=== PATIENT | female | born 1990 | race African-American/Black ===

== ENCOUNTER 2016-09-07 14:02 | Inpatient (IN) | payer OTHER ==
[~2016-09-07] VITALS: Ht 175.3 cm; Wt 86.0 kg
[2016-09-07 14:21] VITALS: BP 139/77
[2016-09-07] MEDS ORDERED: PRENTAB9 PO (14:25)
[2016-09-07] MEDS ORDERED: TUMS500C PO (14:25)
[2016-09-07] MEDS ORDERED: GENTAMICIN 80 MG in APPROPRIATE DILUENT 1 EA IV ONE (15:30)
[2016-09-07] MEDS ORDERED: CLINDAMYCIN 900 MG in APPROPRIATE DILUENT 1 EA IV ONE (15:30)
[2016-09-07 15:44] LABS: MEAN CORPUSCULAR HEMOGLOBIN 26.9 pg (27.0-33.0); MEAN CORPUSCULAR HGB CONC 32.1 g/dl (32.0-36.5); MEAN CORPUSCULAR VOLUME 83.9 fl (80.0-96.0); RED CELL DISTRIBUTION WIDTH 13.7 % (11.5-14.5)
[2016-09-07] MEDS ORDERED: NALOXONE INJ 0.4 MG/1 ML VIAL (J2310) IV PRN ×2 (18:58)
[2016-09-07] MEDS ORDERED: METOCLOPRAMIDE INJ 10MG/2ML VIAL (J2765) IV PRN ×3 (18:58→20:30)
[2016-09-07] MEDS ORDERED: ONDANSETRON 4MG/2ML VIAL (J2405) IV PRN ×2 (18:58→20:30)
[2016-09-07] MEDS ORDERED: PHENYLephrine HCL 500 MCG/5 ML (100MCG/ML) SYRINGE (J2370) As Ordered ONE (19:09)
[2016-09-07] MEDS ORDERED: ePHEDrine SULFATE 25 MG/5 ML(5MG/ML) SYRINGE As Ordered ONE (19:09)
[2016-09-07] MEDS ORDERED: ATROPINE SULF 0.4 MG/ML 1ML VIAL (J0461) As Ordered ONE (19:13)
[2016-09-07] MEDS ORDERED: OXYTOCIN INJ 10 UNITS/ML VIAL (J2590) As Ordered ONE (19:21)
[2016-09-07] MEDS ORDERED: ONDANSETRON 4MG/2ML VIAL (J2405) As Ordered ONE (19:21)
[2016-09-07] MEDS ORDERED: KETOROLAC 60 MG/2 ML VIAL (J1885) As Ordered ONE (19:21)
[2016-09-07] MEDS ORDERED: MORPHINE PRES-FREE INJ 10 MG/10 ML VIAL (J2274) As Ordered ONE (19:21)
[2016-09-07] MEDS ORDERED: KETOROLAC 30 MG/ML VIAL (J1885) IV SCH (20:00)
[2016-09-07] MEDS ORDERED: OXYTOCIN DRIP 30 UNITS in APPROPRIATE DILUENT 1 EA IV SCH (20:08)
[2016-09-07] MEDS ORDERED: LR 1,000 ML IV SCH ×2 (20:08→20:30)
[2016-09-07] MEDS ORDERED: MEASLES,MUMPS,RUBELLA VACCINE INJ (MMR-II) (90707) SC SCH (20:15)
[2016-09-07] MEDS ORDERED: PERCOCET 5MG/325MG TAB PO PRN ×2 (20:15→20:30)
[2016-09-07] MEDS ORDERED: RHOGAM 300 MCG (1500 IU) INJ (J2790) IM SCH (20:15)
[2016-09-07] MEDS ORDERED: fentaNYL 100 MCG/2 ML INJECTION (J3010) IV PRN (20:30)
[2016-09-07] MEDS ORDERED: diphenhydrAMINE INJ 50MG/ML VIAL (J1200) IV PRN (20:30)
[2016-09-07] MEDS ORDERED: MEPERIDINE INJ 25 MG/ML VIAL (J2175) IV PRN (20:30)
[2016-09-07 22:00] VITALS: BP 129/69
[2016-09-07 22:30] VITALS: BP 131/76
[2016-09-07 23:18] LABS: CONTROL LINE INT CTR LINE PRESENT; HIV SCRN NEGATIVE (NEGATIVE); HIV SCRN1 NEGATIVE (NEGATIVE)
[2016-09-07 23:30] VITALS: BP 131/62
[2016-09-08] VITALS (7 sets, daily range): BP systolic 118–134; BP diastolic 62–67
[2016-09-08] MEDS: NALBUPHINE HCL 10 MG/ML AMP (J2300) IV PRN ×2 (00:52→08:03)
[2016-09-08] MEDS: KETOROLAC 30 MG/ML VIAL (J1885) IV SCH ×4 (01:52→20:21)
[2016-09-08 07:46] LABS: MEAN CORPUSCULAR HEMOGLOBIN 27.3 pg (27.0-33.0); MEAN CORPUSCULAR HGB CONC 32.2 g/dl (32.0-36.5); MEAN CORPUSCULAR VOLUME 84.7 fl (80.0-96.0); RED CELL DISTRIBUTION WIDTH 13.7 % (11.5-14.5); WHITE BLOOD COUNT 8.3 K/mm3 (4.0-10.0)
[2016-09-08] MEDS: PRENATAL VITAMIN TAB PO SCH (08:02)
[2016-09-08] MEDS: DOCUSATE SODIUM 100 MG CAP PO SCH ×2 (08:03→20:20)
[2016-09-08] MEDS: IBUPROFEN 800 MG TAB PO SCH (22:00)
[2016-09-09] MEDS: PERCOCET 5MG/325MG TAB PO PRN ×2 (04:04→10:57)
[2016-09-09] MEDS: IBUPROFEN 800 MG TAB PO SCH (06:18)
[2016-09-09 06:29] VITALS: BP 122/68
[2016-09-09] MEDS ORDERED: medroxyPROGESTERone ACET IM SUSP 150 MG/ML VIAL (J1050) IM ONE (08:00)
[2016-09-09] MEDS: DOCUSATE SODIUM 100 MG CAP PO SCH (08:13)
[2016-09-09] MEDS: PRENATAL VITAMIN TAB PO SCH (08:14)
[2016-09-09] MEDS ORDERED: COLA100C3 PO (08:50)
[2016-09-09] MEDS ORDERED: OXYC1TAB23 PO (08:52)
[2016-09-09] MEDS ORDERED: IBUP-1114 PO (08:52)
== END 2016-09-09 11:30 | disposition home or self-care (01) | DRG 766 ==
LOC: M LDO 14:02 → M LDI 14:59 → M OBS 21:40
PROVIDERS: ADMIT Obstetrics & Gynecology; ATTEND Obstetrics & Gynecology
PROC: 10D00Z1 Extraction of Products of Conception, Low, Open Approach (ICD-10-PCS; principal; 2016-09-07 19:17)
DX: O34.219 Maternal care for unspecified type scar from previous cesarean delivery (principal); O75.82 Onset (spontaneous) of labor after 37 completed weeks of gestation but before 39 completed weeks gestation, with delivery by (planned) cesarean section; Z37.0 Single live birth; Z3A.38 38 weeks gestation of pregnancy; Z88.0 Allergy status to penicillin; Z91.030 Bee allergy status; Z91.09 Other allergy status, other than to drugs and biological substances; E73.9 Lactose intolerance, unspecified; Z79.899 Other long term (current) drug therapy; O76 Abnormality in fetal heart rate and rhythm complicating labor and delivery; O99.284 Endocrine, nutritional and metabolic diseases complicating childbirth